=== PATIENT | female | born 1970 | race Asian ===

== ENCOUNTER 2021-05-05 23:02 | Emergency (ER) | payer OTHER ==
[2021-05-05 23:08] VITALS: BP 137/80; PULSE 106; TEMP 98.7; BMI 29.8
[2021-05-06] MEDS ORDERED: ACETAMINOPHEN 325 MG TABLET (FP) PO PRN (00:02)
[2021-05-06] MEDS ORDERED: ACETAMINOPHEN 325 MG TABLET (FP) ONE (00:04)
== END 2021-05-06 02:58 | disposition home or self-care (01) ==
LOC: JER 23:02
DX: M79.602 Pain in left arm (principal)
CPT/HCPCS: 73060-TC-LT-FY; 73070-TC-LT-FY; 73090-TC-LT-FY; 99285-25

== ENCOUNTER 2025-03-01 12:16 | Day surgery (SDC) | payer OTHER ==
[2025-03-01] MEDS: IRON SUCROSE INJECTION 300 MG in SODIUM CHLORIDE 250 ML IVPB ONE (12:25)
[2025-03-01 16:30] VITALS: BP 146/85; PULSE 99; RESP 20; TEMP 98
== END 2025-03-01 14:15 | disposition home or self-care (01) ==
LOC: JONCNONCHE 12:16
PROVIDERS: ATTEND Internal Medicine Hematology & Oncology
PROC: 3E033GC Introduction of Other Therapeutic Substance into Peripheral Vein, Percutaneous Approach (ICD-10-PCS; principal; 2025-03-01)
DX: D50.9 Iron deficiency anemia, unspecified (principal)
CPT/HCPCS: 96365; J1756